=== PATIENT | female | born 1970 | race Caucasian/White ===

== ENCOUNTER 2017-01-20 08:04 | Emergency (ER) | payer BC ==
[2017-01-20 08:36] VITALS: BP 127/80
--- NOTE | 2017-01-20 09:04 | UC ---
Shoulder Pain HPI - HPI Summary HPI Summary: LEFT SHOULDER/UPPER BACK PAIN FOR SEVERAL WEEKS. SAW PCP 1 WEEK AGO AND DX WITH MUSCLE STRAIN. TOOK ALEVE X 1 WITH NO IMPROVEMENT SO DIDN'T TAKE IT AGAIN. THIS MORNING REACHED FOR SOMETHING IN THE SHOWER AND PAIN WORSENED. NO NUMBNESS OR TINGLING. - History of Current Complaint Chief Complaint: UCBackPain Stated Complaint: NECK/SHOULDER INJURY Time Seen by Provider: 01/20/17 08:51 Hx Obtained From: Patient Hx Last Menstrual Period: 01/13/17 Onset/Duration: Gradual Onset, Lasting Weeks, Still Present Timing: Constant Severity Initially: Mild Severity Currently: Moderate Location Of Pain: Is Discrete @ - LEFT SHOULDER Pain Intensity: 3 Pain Scale Used: 0-10 Numeric Character: Sharp, Throbbing Aggravating Factor(s): Movement Alleviating Factor(s): Rest Associated Signs And Symptoms: Positive: Negative - Allergies/Home Medications Allergies/Adverse Reactions: Allergies Allergy/AdvReac Type Severity Reaction Status Date / Time No Known Allergies Allergy Verified 01/20/17 08:36 PMH/Surg Hx/FS Hx/Imm Hx Endocrine History Of: Denies: Diabetes, Thyroid Disease Cardiovascular History Of: Denies: Cardiac Disorders, Hypertension Respiratory History Of: Denies: COPD, Asthma GI/ History Of: Reports: Gastroesophageal Reflux Denies: Ulcer Neurological History Of: Reports: Migraine Cancer History Of: Denies: Breast Cancer - Surgical History Surgical History: Yes Surgery Procedure, Year, and Place: Broken Ankle. Broken Arm - Family History Known Family History: Positive: None Negative: Hypertension - Social History Alcohol Use: Occasionally Substance Use Type: None Smoking Status (MU): Never Smoked Tobacco Have You Smoked in the Last Year: No When Did the Patient Quit Smoking/Using Tobacco: quit 3-4 years ago Review of Systems Constitutional: Negative Skin: Negative Respiratory: Negative Cardiovascular: Negative Gastrointestinal: Negative Musculoskeletal: Decreased ROM, Myalgia All Other Systems Reviewed And Are Negative: Yes Physical Exam Triage Information Reviewed: Yes Appearance: Well-Appearing, Well-Nourished, Pain Distress - MILD Vital Signs: Initial Vital Signs Temp 98.4 F 01/20/17 08:26 Pulse 73 01/20/17 08:26 Resp 16 01/20/17 08:26 BP 127/80 01/20/17 08:26 Pulse Ox 100 01/20/17 08:26 Eyes: Positive: Conjunctiva Clear ENT: Positive: Hearing grossly normal Neck: Positive: Supple, Tenderness @ - LEFT TRAP Respiratory: Positive: No respiratory distress, No accessory muscle use Cardiovascular: Positive: Pulses Normal Abdomen Description: Positive: Soft Musculoskeletal: Positive: No Edema Neurological: Positive: Alert Psychological: Positive: Age Appropriate Behavior Skin: Negative: rashes Shoulder Course/Dx - Differential Dx/Diagnosis Provider Diagnoses: ACUTE MUSCLE STRAIN Discharge - Discharge Plan Condition: Stable Disposition: HOME Prescriptions: Cyclobenzaprine TAB* [Flexeril TAB*] 10 mg PO BID PRN #30 tab PRN Reason: Pain Ibuprofen TAB* [Motrin TAB* 600 MG] 1 tab PO Q6H PRN #30 tab PRN Reason: Pain Patient Education Materials: Muscle Strain (ED) Referrals: Emelina Alfonso MD [Primary Care Provider] - If Needed Additional Instructions: BE SURE TO GO THROUGH SLOW RANGE OF MOTION AND STRETCHING EXERCISES DAILY YOU ARE ABLE TO PREVENT STIFFENING UP AND MAKING THE DISCOMFORT WORSE. YOU CAN ALSO USE HEAT AND MASSAGE.
== END 2017-01-20 09:12 | disposition home or self-care (01) ==
LOC: UCEAST 08:04
DX: S46.912A Strain of unspecified muscle, fascia and tendon at shoulder and upper arm level, left arm, initial encounter (principal); X58.XXXA Exposure to other specified factors, initial encounter; Y92.9 Unspecified place or not applicable; Z87.891 Personal history of nicotine dependence; K21.9 Gastro-esophageal reflux disease without esophagitis
CPT/HCPCS: 99212; G0463